=== PATIENT | male | born 1980 | race Caucasian/White ===

== ENCOUNTER 2016-12-26 21:33 | Emergency (ER) | payer SELFPAY ==
[~2016-12-26] VITALS: Ht 180.3 cm; Wt 83.9 kg
[2016-12-26] MEDS ORDERED: HYDR-971 PO (22:06)
[2016-12-26] MEDS ORDERED: CYCL10TA2 PO (22:06)
--- NOTE | 2016-12-26 22:06 | PHYS DOC ---
Past Medical History Past Medical History: No Pertinent History Past Surgical History: No Surgical History Alcohol Use: Occasionally Drug Use: None Adult General Chief Complaint Chief Complaint: BACK PAIN - NO INJURY HPI HPI Patient is a 36 year old male with no significant medical history who presents today with bilateral low back pain moderate in nature and spasms that began today. He states he bent over to pick some coats when the pain began. Patient states he gets similar pain with spasms once every year. He states they typically give him Flexeril and hydrocodone. Patient denies any pain radiating to bilateral lower extremities. Denies any loss of bowel bladder function. Review of Systems Review of Systems Constitutional: Denies fever or chills [] Eyes: Denies change in visual acuity, redness, or eye pain [] : Denies dysuria or hematuria [] Musculoskeletal:low back pain with spasms Integument: Denies rash or skin lesions [] Neurologic: Denies headache, focal weakness or sensory changes [] Endocrine: Denies polyuria or polydipsia [] Allergies Allergies Allergies Coded Allergies Type Severity Reaction Last Updated Verified No Known Drug Allergies 12/26/16 No Physical Exam Physical Exam Constitutional: Well developed, well nourished, no acute distress, non-toxic appearance. [] HENT: Normocephalic, atraumatic, bilateral external ears normal, oropharynx moist, no oral exudates, nose normal. [] Abdomen: Bowel sounds normal, soft, no tenderness, no masses, no pulsatile masses. [] Skin: Warm, dry, no erythema, no rash. [] Back: Diffuse paraspinal muscle tenderness to the lumbar region, no midline tenderness, no CVA tenderness. [] Extremities: No tenderness, no cyanosis, no clubbing, ROM intact, no edema. [] Neurologic: Alert and oriented X 3, normal motor function, normal sensory function, no focal deficits noted. [] Psychologic: Affect normal, judgement normal, mood normal. [] Current Patient Data Vital Signs Vital Signs Date Time Temp Pulse Resp B/P Pulse Ox O2 Delivery O2 Flow Rate FiO2 12/26/16 21:33 98.0 69 18 149/74 98 Room Air 98.0 EKG EKG [] Radiology/Procedures Radiology/Procedures [] Course & Med Decision Making Course & Med Decision Making Pertinent Labs and Imaging studies reviewed. (See chart for details) Patient is in the ED with complaints of low back pain and muscle spasms after bending over to pick some coats, he probably strained his back. He has history of previous episodes of back pain that he states occurs once a year. He states he typically gets hydrocodone and Flexeril once a year for this pain. RX for pain medicine and muscle relaxant given to him. He was provided return precautions and discharged in stable condition. Dragon Disclaimer Dragon Disclaimer This electronic medical record was generated, in whole or in part, using a voice recognition dictation system. Departure Departure Impression: Primary Impression: Lumbosacral strain Disposition: HOME, SELF-CARE Condition: STABLE Referrals: NO PCP (PCP) Follow-up with your doctor in one week Patient Instructions: Lumbosacral Strain Additional Instructions: You were seen for low back pain with spasms suspicious for muscle strain. Please follow-up with your primary care doctor in the next 7 days. Come back to the ED if symptoms worsen. Scripts Hydrocodone/Apap 5-325 ([place] 5-325 Tablet)1 Each Tablet1-2 Tab PO Q4-6HRS #14 TAB Prov:SHI CM APRN 12/26/16 Cyclobenzaprine Hcl 10 Mg Tablet1 Tab PO TID #30 TAB Prov:SHI CM APRN 12/26/16 Problem Qualifiers Primary Impression: Lumbosacral strain Encounter type: initial encounter Qualified Code: S39.012A - Strain of muscle, fascia and tendon of lower back, initial encounter SHI CM APRN Dec 26, 2016 22:06
[2016-12-26] MEDS ORDERED: CYCLOBENZAPRINE 10 MG TABLET. PO ONE (22:15)
[2016-12-26 22:20] VITALS: BP 119/72
== END 2016-12-26 22:22 | disposition home or self-care (01) ==
LOC: ER 21:33
DX: S39.012A Strain of muscle, fascia and tendon of lower back, initial encounter (principal); X58.XXXA Exposure to other specified factors, initial encounter; Y93.89 Activity, other specified; Y92.89 Other specified places as the place of occurrence of the external cause; Y99.8 Other external cause status
CPT/HCPCS: 99284

== ENCOUNTER 2016-12-28 02:56 | Emergency (ER) | payer SELFPAY ==
[~2016-12-28 02:56] MED LIST: CYCL10TA2 PO; HYDR-971 PO
[2016-12-28 02:58] VITALS: BP 143/90
[2016-12-28] MEDS ORDERED: DEXAMETHASONE 4 MG TABLET PO ONE (03:15)
[2016-12-28] MEDS ORDERED: ORPHENADRINE CITRATE 60 MG/2 ML VIAL. IM ONE (03:15)
[2016-12-28] MEDS ORDERED: KETOROLAC TROMETHAMINE 60 MG/2 ML INJ. IM ONE (03:15)
--- NOTE | 2016-12-28 03:41 | PHYS DOC ---
Past Medical History Past Medical History: No Pertinent History Past Surgical History: No Surgical History Alcohol Use: Occasionally Drug Use: None Adult General Chief Complaint Chief Complaint: BACK PAIN OR INJURY HPI HPI Patient is a 36 year old male who presents with continued bilateral low back pain that is spasmodic, constant with fluctuating intensity, worse with movement of legs or back. Symptoms started after a bending episode recently. States he was seen for this recently and given hydrocodone and Flexeril without control of his symptoms at home. States he cannot walk due to pain. He denies specifically weakness (as opposed to triage note), saddle anesthesia, bowel or bladder dysfunction, numbness, tingling, radiation down the legs. He denies abdominal pain, fever or chills. Review of Systems Review of Systems Constitutional: Denies fever or chills [] Eyes: Denies change in visual acuity, redness, or eye pain [] HENT: Denies nasal congestion or sore throat [] Respiratory: Denies cough or shortness of breath [] Cardiovascular: No additional information not addressed in HPI [] GI: Denies abdominal pain, nausea, vomiting, bloody stools or diarrhea [] : Denies dysuria or hematuria [] Musculoskeletal: Denies joint pain [] Integument: Denies rash or skin lesions [] Neurologic: Denies headache, focal weakness or sensory changes [] Endocrine: Denies polyuria or polydipsia [] Current Medications Current Medications Current Medications Medications (Trade) Dose Ordered Sig/[facility] Start Time Stop Time Status Last Admin Dose Admin Dexamethasone (Decadron) 10 mg 1X ONCE 12/28/16 03:15 12/28/16 03:16 DC 12/28/16 03:20 10 MG Ketorolac Tromethamine (Toradol Im) 15 mg 1X ONCE 12/28/16 03:15 12/28/16 03:16 DC 12/28/16 03:21 15 MG Orphenadrine Citrate (Norflex) 60 mg 1X ONCE 12/28/16 03:15 12/28/16 03:16 DC 12/28/16 03:20 60 MG Allergies Allergies Allergies Coded Allergies Type Severity Reaction Last Updated Verified No Known Drug Allergies 12/26/16 No Physical Exam Physical Exam Constitutional: Well developed, well nourished, no acute distress, non-toxic appearance. [] HENT: Normocephalic, atraumatic, bilateral external ears normal, oropharynx moist, nose normal. [] Eyes: PERRLA, EOMI. [] Neck: Normal range of motion, supple. [] Cardiovascular:Heart rate regular rhythm [] Lungs & Thorax: Bilateral breath sounds clear to auscultation [] Abdomen: Bowel sounds normal, soft, no tenderness. [] Skin: Warm, dry, no erythema, no rash. [] Back: No midline spinal tenderness, no CVA tenderness. Has bilateral lumbar paraspinal tenderness with no visual or palpable abnormality [] Extremities: No tenderness, ROM intact, no edema. Equal DP pulses [] Neurologic: Alert and oriented X 3, normal motor function, normal sensory function, no focal deficits noted. [] Psychologic: Affect normal, judgement normal, mood normal. [] Current Patient Data Vital Signs Vital Signs Date Time Temp Pulse Resp B/P Pulse Ox O2 Delivery O2 Flow Rate FiO2 12/28/16 02:58 98.2 69 18 97 Room Air 98.2 Radiology/Procedures Radiology/Procedures CT lumbar spine without contrast IMPRESSION No acute bony abnormality. Evaluation of the soft tissue structures of the canal is limited without intrathecal contrast, but there is probably mild disc protrusion at L4-5 and L5-S1. Bladder distention, possibly indicating urinary retention. Electronically signed by: Michel Dotson (Dec 28, 2016 04:58:41) Course & Med Decision Making Course & Med Decision Making Pertinent Labs and Imaging studies reviewed. (See chart for details) He was given medications with some improvement in his symptoms, however symptom persisted. CT was ordered with results as above. He was able to void approximately 1 L; and bladder scan showed 950 mL prior to void. His symptoms are improving. He is ambulatory with a steady but antalgic gait. Return precautions given. He and understand and agree with plan. Dragon Disclaimer Dragon Disclaimer This electronic medical record was generated, in whole or in part, using a voice recognition dictation system. Departure Departure Impression: Primary Impression: Low back pain Disposition: HOME, SELF-CARE Condition: STABLE Referrals: NO PCP (PCP) Patient Instructions: Back Pain, Adult, [id number] Additional Instructions: Continue your current medications. Take Valium as needed for back spasms. Do not drink, drive or operate heavy machinery after taking Valium as it may make sleepy. Follow-up with your primary care doctor within one week. Return for any concerns. Scripts Diazepam (Valium)2 Mg Tablet2 Mg PO TID PRN MUSCLE SPASMS #10 TAB Prov:Donn FABIAN MD 12/28/16 Problem Qualifiers Primary Impression: Low back pain Chronicity: acute Back pain laterality: bilateral Sciatica presence: without sciatica Qualified Code: M54.5 - Low back pain Donn FABIAN MD Dec 28, 2016 03:41
--- NOTE | 2016-12-28 05:00 | RAD ---
PROCEDURE CT lumbar spine without contrast 12/28/2016. HISTORY Severe low back pain after bending. TECHNIQUE Noncontrast helical images were obtained. Sagittal and coronal reconstructions were performed. Exposure: One or more of the following individualized dose reduction techniques were utilized for this exam: 1. Automated exposure control. 2. Adjustment of the mA and/or kV according to patient size. 3. Use of iterative reconstruction technique. COMPARISON FINDINGS Alignment is normal. There is no apparent fracture or destructive process. Evaluation of the soft tissue structures of the canal is limited without intrathecal contrast. There is likely mild disc protrusion at L 4 5 and L5-S1. The bony canal and foramina do not appear narrowed. Incidental note is made of urinary bladder distention. IMPRESSION No acute bony abnormality. Evaluation of the soft tissue structures of the canal is limited without intrathecal contrast, but there is probably mild disc protrusion at L4-5 and L5-S1. Bladder distention, possibly indicating urinary retention. Electronically signed by: Michel Dotson (Dec 28, 2016 04:58:41)
[2016-12-28] MEDS ORDERED: DIAZ2TAB PO (05:30)
== END 2016-12-28 05:40 | disposition home or self-care (01) ==
LOC: ER 02:56
DX: M54.5 Low back pain (principal)
CPT/HCPCS: 72131; 96372; 99284; J1885; J2360; J8540